=== PATIENT | male | born 1945 | race Caucasian/White ===

== ENCOUNTER 2016-10-08 07:30 | Emergency (ER) | payer MEDICARE, OTHER ==
[2016-10-08 08:24] LABS: ABSOLUTE EOSINOPHILS # (AUTO) 0.1 10^3/uL (0.0-0.6); ABSOLUTE LYMPHOCYTES (AUTO) 0.6 10^3/uL (0.5-4.7); ABSOLUTE MONOCYTES (AUTO) 0.7 10^3/uL (0.1-1.4); BASOPHILS % (AUTO) 0.5 % (0-2); EOSINOPHILS % (AUTO) 1.5 % (0-6); HEMATOCRIT 34.1 % (37.9-51.0); HEMOGLOBIN 11.9 g/dL (13.5-17.0); HGB HCT DIFFERENCE 1.6; LYMPHOCYTES % (AUTO) 7.7 % (13-45); MEAN CORPUSCULAR HEMOGLOBIN 33.5 pg (27.0-33.4); MEAN CORPUSCULAR HGB CONC 34.9 g/dL (32.0-36.0); MEAN CORPUSCULAR VOLUME 96 fl (80-97); MONOCYTES % (AUTO) 9.2 % (3-13); RED BLOOD COUNT 3.55 10^6/uL (4.35-5.55); RED CELL DISTRIBUTION WIDTH 17.1 % (11.5-14.0); SEGMENTED NEUTROPHILS % (AUTO) 81.1 % (42-78); WHITE BLOOD COUNT 7.4 10^3/uL (4.0-10.5)
[2016-10-08 08:28] LABS: PROTHROMBIN TIME 16.8 SEC (11.4-15.4)
[2016-10-08 08:44] LABS: ALANINE AMINOTRANSFERASE 122 U/L (21-72); ALBUMIN 3.2 g/dL (3.5-5.0); ANION GAP 9 (5-19); ASPARTATE AMINO TRANSFERASE 161 U/L (17-59); BILIRUBIN,TOTAL 26.4 mg/dL (0.2-1.3); BLOOD UREA NITROGEN 10 mg/dL (7-20); CARBON DIOXIDE 28 mmol/L (22-30); CHLORIDE 97 mmol/L (98-107); CREATININE RESULT 0.65 mg/dL (0.52-1.25); GLUCOSE 101 mg/dL (75-110); LIPASE 103.9 U/L (23-300); POTASSIUM 3.9 mmol/L (3.6-5.0); SODIUM 134.3 mmol/L (137-145)
[2016-10-08 08:49] LABS: ALKALINE PHOSPHATASE 437 U/L (38-126)
[2016-10-08 08:50] LABS: TOTAL PROTEIN 7.4 g/dL (6.3-8.2)
[2016-10-08 08:53] LABS: APPEARANCE,URINE CLEAR; BILIRUBIN,URINE MODERATE (NEGATIVE); GLUCOSE, URINE NEGATIVE (NEGATIVE); KETONES,URINE NEGATIVE (NEGATIVE); LEUKOCYTE ESTERASE,URINE NEGATIVE (NEGATIVE); NITRITE,URINE NEGATIVE (NEGATIVE); PROTEIN,URINE NEGATIVE (NEGATIVE); URINE SPECIFIC GRAVITY 1.006
--- NOTE | 2016-10-08 08:58 | ER Document Report ---
HPI - HPI Pain Level: 1 Notes: Patient is a 71-year-old male with a history of COPD who presents the ED complaining of yellowness to his skin and a dull left flank pain 3-4 days. Patient also states that he does have burning with urination and dark colored urine. Patient states that he still eating and drinking without any difficulties. He is still having regular bowel movements Without any acholic or bloody stools. The pain does not radiate in his abdomen. He has not had anything for his symptoms. He denies any alcohol intake or sexual activity. Denies any headache, fever, neck pain/stiffness, changes in vision/speech/ mentation/hearing, URI, sore throat, chest pain, palpitations, syncope, cough, shortness of breath, wheeze, dyspnea, abdominal pain, nausea/vomiting/diarrhea, urinary retention, hematuria, back pain, loss of control of bowel or bladder, numbness/tingling, saddle anesthesia, muscle paralysis/weakness, or rash. Denies HIV or drug use. Denies recent travel or illness. Visit in 2010 showed lung nodule investigation. 1123: pt c/o b/l back pain now. Pt states pain is an ache and is tolerable, not debilitating. - ROS Notes: REVIEW OF SYSTEMS: CONSTITUTIONAL : Denies fever, chills, or sweats. Denies recent illness. EENT: Denies eye, ear, throat, or mouth pain or symptoms. Denies nasal or sinus congestion or discharge. Denies throat, tongue, or mouth swelling or difficulty swallowing. CARDIOVASCULAR: Denies chest pain. Denies palpitations or racing or irregular heart beat. Denies ankle edema. RESPIRATORY: Denies cough, cold, or chest congestion. Denies shortness of breath, difficulty breathing, or wheezing. GASTROINTESTINAL: see hpi. GENITOURINARY: Denies difficulty urinating, painful urination, burning, frequency, blood in urine, or discharge. MUSCULOSKELETAL: Denies back or neck pain or stiffness. Denies joint pain or swelling. SKIN: Denies rash, lesions or sores. see hpi (jaundice) NEUROLOGICAL: Denies confusion or altered mental status. Denies passing out or loss of consciousness. Denies dizziness or lightheadedness. Denies headache. Denies weakness or paralysis or loss of use of either side. Denies problems with gait or speech. Denies sensory loss, numbness, or tingling. Denies seizures. PSYCHIATRIC: Denies anxiety or stress. Denies depression, suicidal ideation, or homicidal ideation. ALL OTHER SYSTEMS REVIEWED AND NEGATIVE. Dictation was performed using [employer] voice recognition software - DERM Skin Color: Normal Past Medical History - Social History Smoking Status: Unknown if Ever Smoked Frequency of alcohol use: None Drug Abuse: None Family History: Reviewed & Not Pertinent Pulmonary Medical History: Reports: Hx COPD Renal/ Medical History: Denies: Hx Peritoneal Dialysis Vertical Provider Document - CONSTITUTIONAL Agree With Documented VS: Yes Notes: PHYSICAL EXAMINATION: GENERAL: Well-appearing, well-nourished and in no acute distress. HEAD: Atraumatic, normocephalic. EYES: Pupils equal round and reactive to light, extraocular movements intact, sclera icteric, conjunctiva are normal. ENT: EAC clear b/l. TM's intact b/l without erythema, fluid, or perforation. Nares patent and without discharge. oropharynx clear without exudates. No tonsilar hypertrophy or erythema. Moist mucous membranes. No sinus tenderness. NECK: Normal range of motion, supple without lymphadenopathy. No rigidity/ meningismus. LUNGS: Breath sounds clear to auscultation bilaterally and equal. No wheezes rales or rhonchi. HEART: Regular rate and rhythm without murmurs, rubs, gallops. ABDOMEN: Soft, nondistended abdomen. No guarding, no rebound. No masses appreciated. Normal bowel sounds present. No CVA tenderness bilaterally. + mild left abd tenderness; primarily near the flank. Musculoskeletal: Ext b/l: FROM to passive/active. Strength 5+/5. No focal deficits noted. Extremities: No cyanosis, clubbing, or edema b/l. Peripheral pulses 2+. Capillary refill less than 3 seconds. NEUROLOGICAL: MMSE intact. Cranial nerves grossly intact. Normal speech, normal gait. Normal sensory, motor exams PSYCH: Normal mood, normal affect. SKIN: Jaundice. No other obvious rash. - INFECTION CONTROL TRAVEL OUTSIDE OF THE [place] IN LAST 30 DAYS: No - RESPIRATORY O2 Sat by Pulse Oximetry: 97 Course - Re-evaluation Re-evalutation: 10/08/16 17:59 Patient is an afebrile, well-hydrated, 71-year-old male who presents the ED with a biliary stricture and jaundice. Vitals are stable. CBC showed a mild anemia. CMP showed severely elevated bilirubin with elevation in AST/ALT and alk phos. abdominal ultrasound led to a CT scan with oral and IV contrast which revealed a biliary stricture. Reviewed case with Dr. Huynh. Saline started at 200 mL's per hour. Patient was given 2 mg IV morphine and made n.p.o. reviewed case with Dr. Malone at [facility] who accepted patient for transfer for ERCP and further evaluation. Patient will be provided pain control and fluids until his transfer. Patient is in agreement with plan. Risks and benefits are understood. - Vital Signs Vital signs: Temp Pulse Resp BP Pulse Ox 97.5 F 103 H 18 139/76 H 97 10/08/16 07:37 10/08/16 07:37 10/08/16 07:37 10/08/16 07:37 10/08/16 07:37 - Laboratory Result Diagrams: 10/08/16 07:55 10/08/16 07:55 Laboratory results interpreted by me: 10/08/16 10/08/16 10/08/16 07:55 07:55 07:55 RBC 3.55 L Hgb 11.9 L Hct 34.1 L MCH 33.5 H RDW 17.1 H Seg Neutrophils % 81.1 H Lymphocytes % 7.7 L PT 16.8 H Sodium 134.3 L Chloride 97 L Total Bilirubin 26.4 H Direct Bilirubin 24.0 H AST 161 H ALT 122 H Alkaline Phosphatase 437 H Albumin 3.2 L Discharge - Discharge Clinical Impression: Biliary stricture, Jaundice Condition: Stable Disposition: [facility]
[2016-10-08] MEDS ORDERED: MORPHINE SULFATE 10 MG/ML INJ IV ONE (16:54)
[2016-10-08] MEDS ORDERED: NORMAL SALINE 1000 ML 1,000 ML IV PRN (16:57)
--- NOTE | 2016-10-08 22:23 | ER Document Report ---
Doctor's Note Notes: 10/08/16 22:22 Patient being transferred by ground. EMMA, DEYANIRA. Medically stable at this time.
[2016-10-08 22:26] VITALS: BP 141/69
--- NOTE | 2016-10-09 15:00 | RADIOLOGY REPORT (SQ) ---
EXAM DESCRIPTION: CT ABD/PELVIS WITH IV ORAL COMPLETED DATE/TIME: 10/08/2016, 1335 hours REASON FOR STUDY: Jaundice, dilated bile ducts COMPARISON: Abdominal ultrasound 10/08/2016, PET-CT 01/18/2011 TECHNIQUE: CT scanning of the abdomen and pelvis was performed with oral and IV contrast, reviewed a t lung bone and soft tissue windows with sagittal and coronal reconstructions. Immediate post IV con trast and delayed postcontrast images were obtained. Patient was injected with 84 mL of Isovue-300 contrast. Creatinine 0.65. RADIATION DOSE: 19 mGy LIMITATIONS: None FINDINGS: There is marked intrahepatic biliary ductal dilatation, down to the junction of the common hepatic duct and cystic duct. The common bile duct is non dilated. No radiopaque gallstones. No p ancreatic head mass. Findings most likely represent a biliary stricture. Bile duct tumor could not be excluded. No right upper quadrant adenopathy. No pancreatic head mass. No radiopaque gallstones. No gallbladder wall thickening or pericholecystic fluid. No solid liver masses are identified. Spleen, adrenal glands, kidneys unremarkable. No pancreatic masses, peripancreatic inflammation or fluid. Abdominal aorta and major branches are widely patent. Vena cava, retroperitoneum otherwise unremarka ble. Patient drank oral contrast. No CT evidence of bowel obstruction. Moderate stool in the ascending c olon. No free pelvic fluid. Bladder unremarkable. No pelvic adenopathy. Delayed images of the kidneys ureters and bladder show no evidence of urinary outflow obstruction. Sagittal and coronal reconstructions, bone windows demonstrate degenerative changes in the lower lumb ar spine. Results discussed with Dr. Huynh in the emergency room. IMPRESSION: Significant intrahepatic biliary ductal dilatation. Suspect a focal stricture or obstru ction at the junction of the cystic duct and common hepatic duct. No pancreatic head mass. No solid liver nodules. No right upper quadrant adenopathy
--- NOTE | 2016-10-09 15:14 | RADIOLOGY REPORT (SQ) ---
EXAM DESCRIPTION: U/S ABDOMEN COMPLETE W/DOPPLER COMPLETED DATE/TIME: 10/08/2016, 0950 hours REASON FOR STUDY: Jaundice, abdominal pain, left flank and left upper quadrant pain COMPARISON: PET-CT exam 01/18/2011 TECHNIQUE: Total abdominal ultrasound with grayscale and cine loop and color flow images saved to hugo oshea's LIMITATIONS: Midline bowel gas FINDINGS: There is marked intrahepatic and moderate extrahepatic biliary ductal dilatation. The com mon bile duct of the martha hepatis measures 1.5 cm in diameter. Distal most common duct not well see n due to duodenum gas. The distal duct or stricture or pancreatic head mass may be present. This re port was discussed with Dr. Huynh in the emergency room, 10/08/2016, 1050 hours. The gallbladder is filled with sludge. No shadowing stones. Borderline gallbladder wall thickening, no pericholecystic fluid. Negative sonographic Wagner's sign. Limited view of the midline pancreas is unremarkable Liver is normal size. No focal masses. Antegrade portal vein and hepatic vein flow. Both kidneys are normal in size, without hydronephrosis, cysts, stones, or masses. No splenomegaly. Normal splenic vein flow. Abdominal aorta, hepatic vena cava unremarkable. No ascites. No gross pleural effusions. IMPRESSION: Biliary ductal dilatation worrisome for distal common duct stricture, stone, or pancreat ic head mass. Sludge in the gallbladder. Borderline gallbladder wall thickening.
== END 2016-10-08 22:25 | disposition short-term general hospital (02) ==
LOC: ER 07:30
DX: K83.8 Other specified diseases of biliary tract (principal); J44.9 Chronic obstructive pulmonary disease, unspecified; D64.9 Anemia, unspecified; R30.0 Dysuria; R10.9 Unspecified abdominal pain; M54.9 Dorsalgia, unspecified; R17 Unspecified jaundice
CPT/HCPCS: 99285; 96374; 36415; 83690; 85025; 85610; 80053; 81001; 76700; 93976; 74177; J2270; J7030

== ENCOUNTER → 2016-11-15 | Outpatient (CLI) | payer MEDICARE, OTHER ==
--- NOTE | 2016-11-16 17:43 | RADIOLOGY REPORT (SQ) ---
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 TECHNIQUE: Blood glucose level was verified. Above dose of FDG was injected intravenously. 2-D seg mented attenuation correction images were obtained from the base of the skull to the midthighs. Nonc ontrast CT images were obtained for attenuation correction and fusion with emission images. CT image s were performed without oral or intravenous contrast and are not sensitive for parenchymal lesions. A series of overlapping emission PET images were obtained. Images reviewed and manipulated at [facility] work station by the radiologist. Images stored on PACS. LIMITATIONS: None. FINDINGS: HEAD AND NECK: No areas of abnormal metabolic activity in the soft tissues of the head and neck. CHEST: No areas of abnormal metabolic activity in the chest. Advanced obstructive lung disease. The re is non metabolic bandlike scarring in the left upper lobe. ABDOMEN AND PELVIS: Endoscopically placed biliary stents are present. These are patent, there is air in the left intrahepatic biliary ductal system. Along the dorsal aspect of the biliary stents, a 1.4 cm thick rind of soft tissue is present with SUV 4.3 worrisome for primary biliary tumor. A less than 1 cm martha hepatis lymph node is present ventral to the common duct stents at the martha h epatis, with SUV of 4.0. A less than 2 cm liver nodule is present in segment 7 with SUV of 4.2. This is very difficult to vis ualize on CT. No primary pancreatic mass is identified. No hypermetabolic pancreatic lesions. PROXIMAL LOWER EXTREMITIES: No areas of abnormal metabolic activity in the soft tissues of the lower extremities. BONES: No abnormal metabolic activity in the visualized skeleton. ADDITIONAL CT FINDINGS: Advanced obstructive lung disease. Heavy coronary artery calcification. OTHER: Background liver activity SUV 1.7. 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 Rae TECHNICAL DOCUMENTATION: JOB ID: [id number]- All Rights Reserved
== END ==
LOC: RAD 19:33
PROVIDERS: ATTEND Internal Medicine
DX: C25.9 Malignant neoplasm of pancreas, unspecified (principal)
CPT/HCPCS: 78815; A9552

== ENCOUNTER 2016-12-01 08:34 | Day surgery (SDC) | payer MEDICARE, OTHER ==
[~2016-12-01 08:34] MED LIST: CEFAZOLIN 1 GM/D5W RTU 1 GM/50 ML RTUPB IV PRN; DEXTROSE 5%-1/2 NORMAL SALINE 1,000 ML IV PRN
--- NOTE | 2016-12-01 08:43 | RADIOLOGY REPORT (SQ) ---
EXAM DESCRIPTION: CHEST PA/LATERAL COMPLETED DATE/TIME: 12/01/2016 8:29 am REASON FOR STUDY: PRE-OP COMPARISON: PET-CT 11/15/2016, 01/18/2011 EXAM PARAMETERS: NUMBER OF VIEWS: two views TECHNIQUE: Digital Frontal and Lateral radiographic views of the chest acquired. RADIATION DOSE: NA LIMITATIONS: none FINDINGS: LUNGS AND PLEURA: End stage appearance of obstructive lung disease, with enlarged airspace s in the upper and mid lungs, crowding of vascular markings in the mid and lower lungs. No acute infiltrates. Stable bandlike scarring left upper lobe. No pleural effusion. No pneumothorax. MEDIASTINUM AND HILAR STRUCTURES: No masses or contour abnormalities. HEART AND VASCULAR STRUCTURES: Heart normal size. No evidence for failure. BONES: Osteoporotic with mid thoracic compression deformities HARDWARE: None in the chest. OTHER: No other significant finding. IMPRESSION: Advanced obstructive lung disease TECHNICAL DOCUMENTATION: JOB ID: [id number] [employer]- All Rights Reserved
[2016-12-01 08:45] LABS: HEMATOCRIT 39.7 % (37.9-51.0); HEMOGLOBIN 13.5 g/dL (13.5-17.0); HGB HCT DIFFERENCE 0.8; MEAN CORPUSCULAR HEMOGLOBIN 31.4 pg (27.0-33.4); MEAN CORPUSCULAR VOLUME 92 fl (80-97); RED BLOOD COUNT 4.31 10^6/uL (4.35-5.55); RED CELL DISTRIBUTION WIDTH 13.3 % (11.5-14.0); WHITE BLOOD COUNT 8.1 10^3/uL (4.0-10.5)
[2016-12-01 09:09] LABS: ANION GAP 13 (5-19); BLOOD UREA NITROGEN 11 mg/dL (7-20); CARBON DIOXIDE 29 mmol/L (22-30); CHLORIDE 97 mmol/L (98-107); CREATININE RESULT 0.68 mg/dL (0.52-1.25); GLUCOSE 114 mg/dL (75-110); POTASSIUM 5.2 mmol/L (3.6-5.0); SODIUM 138.9 mmol/L (137-145)
[2016-12-01] MEDS ORDERED: MIDAZOLAM 2 MG/2 ML INJ ONE (10:12)
[2016-12-01] MEDS ORDERED: FENTANYL CITRATE INJ/PF 100 MCG/2 ML AMPUL ONE (10:12)
[2016-12-01] MEDS ORDERED: BACITRACIN INJ 50,000 UNIT VIAL ONE (10:13)
[2016-12-01] MEDS ORDERED: LIDOCAINE 0.5% INJ-PF (5 MG/ML) 50 ML SDV ONE (10:13)
--- NOTE | 2016-12-01 13:02 | PDOC DISCHARGE SUMMARY ---
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 Date of Surgery: 12/01/16 Discharge Date: 12/01/16 Condition: Poor Treatment or Instructions: Discharge home [after recovery per ASU criteria]. Diet , as tolerated, when fully awake advance as tolerated. Activities within moderation encouraged. Follow up in my office by appointment in about [1 week]. Call for appointment. Leave wounds [covered], [keep clean and dry, until office visit in 1 week]. Meds per med rec. May shower [in 48 hrs], [try to keep operated area as dry as possible]. Referrals: LOCALMD,NO [Primary Care Provider] - Discharge Diet: As Tolerated Respiratory Treatments at Home: Deep Breathing/Coughing Discharge Activity: Activity As Tolerated Report the Following to Your Physician Immediately: Shortness of Breath, Unusual Bleeding
--- NOTE | 2016-12-01 13:03 | Operative Report ---
Operative Report DATE OF SURGERY: 12/01/16 PREOPERATIVE DIAGNOSIS: Cancer hepatic duct. COPD POSTOPERATIVE DIAGNOSIS: Cancer hepatic duct. Post Port-A-Cath insertion. COPD OPERATION: 1. Ultrasound evaluation of the right internal jugular vein. 2. Insertion of single-lumen Port-A-Cath via real-time access of the right internal jugular vein. 3. Angiogram and interpretation. SURGEON: [place] GRINDER: None ANESTHESIA: Moderate Sedation TISSUE REMOVED OR ALTERED: Not applicable. COMPLICATIONS: None ESTIMATED BLOOD LOSS: 5 mL. INTRAOPERATIVE FINDINGS: Of a satisfactory right internal jugular vein support Port-A-Cath. Approximately 1.5 cm diameter. PROCEDURE: After obtaining informed consent, the patient was taken to the [operating room] and positioned supine. The [right] neck and chest were prepared with chlorhexidine and draped out with sterile linen. After the " universal timeout ", in which it was verified that the patient continued to receive antibiotic, the procedure commenced. A steriley sheathed ultrasound probe was used to evaluate the [right] internal jugular vein. Local anesthesia was infiltrated adjacent to the probe. Access into the [right] internal jugular vein was obtained using a micropuncture needle, followed by micropuncture wire and then a micropuncture catheter. This was followed by introduction of a 0.035 guidewire the tip of which was placed down into the inferior vena cava . The port sites was marked , locally anesthetized and incision made. Dissection now proceeded to the deep subcutaneous subcutaneous tissues so that a pocket for the port was made. Meticulous hemostasis was secured and the catheter was tunneled between the 2 incisions. Proximally, the catheter was now positioned using a peel-away sheath. Distally the catheter was tailored to an appropriate length and then mated to the port using the contained fixating device. The port was now placed in the pocket and the catheter optimally positioned. The port was accessed with a Kirk needle and an angiogram done under digital subtraction. The findings as dictated. With adequate and satisfactory positioning, both lumens of the chamber were irrigated with heparinized solution. The wounds were now closed using interrupted 3-0 PDS to the subcutaneous tissues and a continuous subcuticular suture of 4-0 Monocryl to the skin. These are reinforced with Steri-Strips over benzoin and then dressings applied. Copies of the dictated operative report for Dr. Barrett Sears MD.
[2016-12-01 14:08] VITALS: BP 134/96
--- NOTE | 2016-12-01 16:46 | RADIOLOGY REPORT (SQ) ---
EXAM DESCRIPTION: PORTACATH INSERTION COMPLETED DATE/TIME: 12/01/2016 1:53 pm REASON FOR STUDY: PORT A CATH J43.9 EMPHYSEMA, UNSPECIFIED COMPARISON: None. FLUOROSCOPY TIME: 0.8 minutes 3 digital images saved to PACS. TECHNIQUE: Intra-operative images acquired during surgical procedure to evaluate progress. NUMBER OF IMAGES: 3 digital images LIMITATIONS: None. FINDINGS: Intra procedural imaging and fluoro during central venous catheter placement by Dr. Farah ms. Please see the operative report for further details. IMPRESSION: Intra procedural imaging and fluoro COMMENT: Quality ID 145: Final reports for procedures using fluoroscopy that document radiation exp osure indices, or exposure time and number of fluorographic images (if radiation exposure indices are not available) Please consult full operative report of the attending physician for description of the procedure. TECHNICAL DOCUMENTATION: JOB ID: [id number] [employer]- All Rights Reserved
== END 2016-12-01 14:00 | disposition home or self-care (01) ==
LOC: SC 08:34
PROVIDERS: ATTEND Surgery
PROC: 05HM33Z Insertion of Infusion Device into Right Internal Jugular Vein, Percutaneous Approach (ICD-10-PCS; principal; 2016-12-01)
DX: C24.0 Malignant neoplasm of extrahepatic bile duct (principal); J43.9 Emphysema, unspecified; Z87.891 Personal history of nicotine dependence; Z79.51 Long term (current) use of inhaled steroids
CPT/HCPCS: 36561 ×2; 36415; 85027; 80048; 76937; 77001; 71020; C1788; Q9967; J2250; J3490 ×2; J0690; J3010; J1644

== ENCOUNTER → 2017-02-09 | Outpatient (CLI) | payer MEDICARE, OTHER ==
--- NOTE | 2017-02-09 12:31 | RADIOLOGY REPORT (SQ) ---
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 Images reviewed with lung, soft tissue and bone windows. Reconstructed coronal and sagittal MPR images reviewed. All images stored on PACS. All CT scanners at this facility use dose modulation, iterative reconstruction, and/or weight based d osing when appropriate to reduce radiation dose to as low as reasonably achievable (ALARA). [facility]: Dose Right [facility]: CareDose [facility]: Dose Right [facility]: Teradose 4D [facility]: [employer] CONTRAST TYPE AND DOSE: contrast/concentration: Isovue 370.00 mg/ml; Total Contrast Delivered: 70.0 ml; Total Saline Delivered: 40.7 ml RENAL FUNCTION: Creatinine 0.6 BUN 11 RADIATION DOSE: CT Rad equipment meets quality standard of care and radiation dose reduction techniq ues were employed. CTDIvol: 5.3 - 6.8 mGy. DLP: 723 mGy-cm. . LIMITATIONS: None. FINDINGS: LUNGS AND PLEURA: Severe emphysematous changes are present. There is subsegmental atelect asis versus scarring in the left lung. There is no pulmonary mass. There is no pleural effusion. T here is marked hyperinflation of the lungs. HILAR AND MEDIASTINAL STRUCTURES: No identified masses or abnormal nodes. HEART AND VASCULAR STRUCTURES: Right internal jugular catheter. HARDWARE: None in the chest. UPPER ABDOMEN: No significant findings. Limited exam. THYROID AND OTHER SOFT TISSUES: No masses. No adenopathy. BONES: Scoliosis. No osseous metastases. OTHER: There is a localized eventration of the right hemidiaphragm or merely an unusual contour. [place] el is present. IMPRESSION: Severe pulmonary emphysema with no evidence of pulmonary or thoracic metastases. TECHNICAL DOCUMENTATION: JOB ID: [id number] Quality ID # [id number]: Final reports with documentation of one or more dose reduction techniques (e.g., Au tomated exposure control, adjustment of the mA and/or kV according to patient size, use of iterative reconstruction technique) 2010 [employer]- All Rights Reserved
--- NOTE | 2017-02-09 12:42 | RADIOLOGY REPORT (SQ) ---
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 No oral contrast. Images reviewed with lung, soft tissue, and bone windows. Reconstructed coronal and sagittal MPR images reviewed. Delayed images for evaluation of the urinary system also acquired. All images stored on PACS. All CT scanners at this facility use dose modulation, iterative reconstruction, and/or weight based d osing when appropriate to reduce radiation dose to as low as reasonably achievable (ALARA). [facility]: Dose Right [facility]: CareDose [facility]: Dose Right [facility]: Teradose 4D [facility]: Recommend CONTRAST TYPE AND DOSE: 70 cc Isovue 370- low osmolar. RENAL FUNCTION: Creatinine 0.6 BUN 11 RADIATION DOSE: . LIMITATIONS: None. FINDINGS: LOWER CHEST: See separate report of the CT of the chest. LIVER: There is air in intrahepatic ducts. A common bile duct stent is present. No hepatic masses a re seen. SPLEEN: Normal size. No focal lesions. PANCREAS: No masses. No significant calcifications. No adjacent inflammation or peripancreatic fluid collections. Pancreatic duct not dilated. GALLBLADDER: No identified stones by CT criteria. No inflammatory changes to suggest cholecystitis. ADRENAL GLANDS: No significant masses or asymmetry. RIGHT KIDNEY AND URETER: No solid masses. No significant calcifications. No hydronephrosis or hyd roureter. LEFT KIDNEY AND URETER: No solid masses. No significant calcifications. No hydronephrosis or hydr oureter. AORTA AND VESSELS: No aneurysm. No dissection. Renal arteries, SMA, celiac without stenosis. RETROPERITONEUM: No retroperitoneal adenopathy, hemorrhage or masses. BOWEL AND PERITONEAL CAVITY: There is a portion of bowel in what appears to be a localized eventratio n of the diaphragm on the right posteriorly. Considerable stool is present. No bowel mass is seen. APPENDIX: Surgically absent. PELVIS: No mass. No free fluid. Normal bladder. ABDOMINAL WALL: No masses. No hernias. BONES: No osseous metastases are seen. OTHER: No other significant finding. IMPRESSION: 1. The intrahepatic ducts are decompressed with the common bile duct stent. There is c onsequently a small amount of air in some of the intrahepatic ducts. 2. No metastases are seen in the abdomen or pelvis. 3. Constipation. TECHNICAL DOCUMENTATION: JOB ID: [id number] Quality ID # [id number]: Final reports with documentation of one or more dose reduction techniques (e.g., Au tomated exposure control, adjustment of the mA and/or kV according to patient size, use of iterative reconstruction technique) 2010 [employer]- All Rights Reserved
== END ==
LOC: RAD 10:05
PROVIDERS: ATTEND Internal Medicine
DX: C24.0 Malignant neoplasm of extrahepatic bile duct (principal); K59.00 Constipation, unspecified; J43.9 Emphysema, unspecified
CPT/HCPCS: 71260; 74177

== ENCOUNTER → 2017-05-02 | Outpatient (CLI) | payer MEDICARE, OTHER ==
--- NOTE | 2017-05-03 10:45 | RADIOLOGY REPORT (SQ) ---
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 PET-CT dated 11/15/2016 and 01/18/2011. RADIONUCLIDE AND DOSE: 10.0 mCi F18 FDG The route of agent administration: Intravenous FASTING BLOOD SUGAR: 120 mg/dl CONTRAST TYPE AND DOSE: No CT contrast given. TECHNIQUE: Blood glucose level was verified. Above dose of FDG was injected intravenously. 2-D seg mented attenuation correction images were obtained from the base of the skull to the midthighs. Nonc ontrast CT images were obtained for attenuation correction and fusion with emission images. CT image s were performed without oral or intravenous contrast and are not sensitive for parenchymal lesions. A series of overlapping emission PET images were obtained. Images reviewed and manipulated at [facility] by the radiologist. Images stored on PACS. LIMITATIONS: None. FINDINGS: HEAD AND NECK: No areas of abnormal metabolic activity in the soft tissues of the head and neck. CHEST: Severe COPD and emphysematous changes with scarring. Chronic cavitary mass in the right lower lobe. There is interval development of ill-defined airspace disease in the peripheral right lung. Areas of increased activity with mean SUV values ranging from 2.4 to 3.23. Focal airspace disease po sterior to the cavitary lesion with mean SUV value 4.66. There is a subcarinal lymph node, difficult to measure on CT images but probably approximately 1.5 cm. Mean SUV value 3.88. ABDOMEN AND PELVIS: Activity adjacent to the biliary stent currently with mean SUV value 2.58, prior value 4.3. Small mass in the right lobe of the liver measuring 1.2 cm with mean SUV value 2.69. Mahi or value 4.2. There is now moderate ascites with free fluid primarily in the dependent pelvis. No n oticeable activity on PET imaging. Expected physiologic activity is present in the genitourinary sys tem and bowel. PROXIMAL LOWER EXTREMITIES: No areas of abnormal metabolic activity in the soft tissues of the lower extremities. BONES: No abnormal metabolic activity in the visualized skeleton. ADDITIONAL CT FINDINGS: No additional significant findings on the noncontrast CT images. OTHER: No other significant findings. IMPRESSION: 1. STABLE BILIARY STENT. ACTIVITY IN THE SOFT TISSUE ADJACENT TO THE BILIARY STENT HAS DECREASED. T HE SMALL MASS IN THE RIGHT LOBE OF THE LIVER ALSO HAS DECREASED ACTIVITY. 2. SEVERE COPD AND EMPHYSEMA WITH SCARRING. CHRONIC CAVITARY MASS IN THE RIGHT LOWER LOBE, UNCHANGED . THERE IS NEW AIRSPACE DISEASE IN THE PERIPHERAL RIGHT LUNG WELL SUBCARINAL ADENOPATHY. THIS MAY BE DUE TO INFECTIOUS ETIOLOGY. MALIGNANT PROCESS CANNOT BE EXCLUDED. 3. INTERVAL DEVELOPMENT OF MODERATE ASCITES WITH FREE FLUID PRIMARILY IN THE DEPENDENT PELVIS. ALTHO UGH THERE IS NO MEASURABLE ACTIVITY ON PET IMAGING, THIS WOULD BE CONCERNING FOR MALIGNANT ASCITES. TECHNICAL DOCUMENTATION: JOB ID: [id number] [employer]- All Rights Reserved Reading location - IP/workstation name: [email or web address]
== END ==
LOC: RAD 17:47
PROVIDERS: ATTEND Internal Medicine
DX: C24.0 Malignant neoplasm of extrahepatic bile duct (principal)
CPT/HCPCS: 78815; A9552